=== PATIENT | male | born 1970 | race Caucasian/White ===

== ENCOUNTER 2021-09-22 12:34 | Outpatient (REF) | payer BC, SELFPAY ==
[2021-09-22 13:56] LABS: MANUAL DIFF FLAG NO
[2021-09-22 14:02] LABS: Basophils Absolute Auto 0.1 X10*3/uL (0.0-0.2); Basophils Percent Auto 0.8 % (0-2); Eosinophils Absolute Auto 0.2 X10*3/uL (0.0-0.4); Eosinophils Percent Auto 2.4 % (0-4); Hematocrit 44.9 % (42.0-52.0); Hemoglobin 15.8 g/dl (14.0-18.0); Imm Gran Abs Auto 0.01 X10*3/uL (0.00-0.03); Imm Gran Pct Auto 0.2 % (0.0-0.4); Lymphocytes Absolute Auto 2.4 X10*3/uL (1.2-4.9); Lymphocytes Percent Auto 38.7 % (20-40); Mean Corpuscular HGB Conc 35.2 g/dl (31.0-36.0); Mean Corpuscular Volume 91.1 fL (80.0-98.0); Mean Platelet Volume 10.4 fL (9.4-12.4); Monocytes Absolute Auto 0.5 X10*3/uL (0.1-1.2); Monocytes Percent Auto 8.4 % (2-11); Neutrophils Absolute Auto 3.1 x10*3/uL (2.0-8.3); Neutrophils Percent Auto 49.5 % (45-73); Platelet Count 223 X10*3/uL (160-400); Red Blood Count 4.93 X10*6/uL (4.60-5.80); Red Cell Distribution Width 12.9 % (11.0-16.0); White Blood Count 6.3 X10*3/uL (4.8-10.8)
[2021-09-22 14:33] LABS: Alanine Aminotransferase 45 U/L (0-40); Albumin Level 4.2 g/dL (3.5-5.0); Alkaline Phosphatase 74 U/L (39-117); Anion Gap 12 (12-20); Aspartate Amino Transferase 25 U/L (5-37); Bilirubin Total 0.7 mg/dL (0.0-1.0); Blood Urea Nitrogen 15 mg/dL (9-16); Calcium 9.1 mg/dL (8.4-10.2); Carbon Dioxide 28 mmol/L (22-29); Chloride 103 mmol/L (96-108); Cholesterol 151 mg/dL; Estimated Glomerular Filt Rate > 60; Glucose Fasting 103 mg/dL (60-99); HDL Cholesterol 49 mg/dL; LDL Cholesterol Calculated 89 mg/dl; Potassium 3.5 mmol/L (3.3-5.1); Sodium 139 mmol/L (135-145); Total Protein 6.4 g/dL (6.5-8.0); Triglycerides 66 mg/dL
[2021-09-22 14:38] LABS: TSH reflex Free T4 1.24 uIU/mL (0.32-4.0); Vitamin D 25-OH Total 12.8 ng/mL (>30)
[2021-09-22 14:42] LABS: Appearance Urine HAZY; Color Urine YELLOW; Glucose Urine UA NEG (NEG); Leukocyte Esterase Urine NEG (NEG); Nitrite Urine NEG (NEG); Specific Gravity - Urine 1.025 (1.005-1.025); Urine Blood NEG (NEG); Urine Ketones NEG (NEG); Urine Protein TRACE MG/DL (NEG-TRACE)
== END 2021-09-22 12:35 | disposition home or self-care (01) ==
LOC: HO.HMGCLDS 12:34
PROVIDERS: Visit Provider Internal Medicine
DX: E55.9 Vitamin D deficiency, unspecified (principal); I10 Essential (primary) hypertension; E78.00 Pure hypercholesterolemia, unspecified
CPT/HCPCS: 36415; 80053; 80061; 81003; 82306; 84443; 85025

== ENCOUNTER 2022-12-09 12:51 | Outpatient (REF) | payer BC, SELFPAY ==
[2022-12-09 15:11] LABS: Alanine Aminotransferase 39 U/L (0-40); Albumin Level 4.4 g/dL (3.5-5.0); Alkaline Phosphatase 72 U/L (39-117); Anion Gap 18 (12-20); Aspartate Amino Transferase 24 U/L (5-37); Bilirubin Total 0.8 mg/dL (0.0-1.0); Blood Urea Nitrogen 16 mg/dL (9-16); Calcium 9.6 mg/dL (8.4-10.2); Carbon Dioxide 27 mmol/L (22-29); Chloride 103 mmol/L (96-108); Estimated Glomerular Filt Rate > 60; Glucose Random 88 mg/dL (60-115); Lipase 27 U/L (8-78); Potassium 4.7 mmol/L (3.3-5.1); Sodium 143 mmol/L (135-145); Total Protein 6.7 g/dL (6.5-8.0)
== END 2022-12-09 12:52 | disposition home or self-care (01) ==
LOC: HO.HMGCLDS 12:51
PROVIDERS: Visit Provider Nurse Practitioner Family
DX: R10.9 Unspecified abdominal pain (principal)
CPT/HCPCS: 36415; 80053; 83690

== ENCOUNTER 2025-04-23 15:35 | Emergency (ER) | payer BC, SELFPAY ==
[2025-04-23] VITALS (7 sets, daily range): BP systolic 181–231; BP diastolic 111–147; PULSE 81–91; RESP 14–18; TEMP 36.7–37.2; O2SAT 92–97; BMI 31.0
--- NOTE | ~2025-04-23 | CT_ITS ---
EXAMINATION: CT HEAD WITHOUT CONTRAST CLINICAL INFORMATION: Hypertension COMPARISON: None available. TECHNIQUE: Contiguous axial imaging was performed from the skull base to vertex without intravenous administration of contrast. This CT examination was performed using dose optimization techniques as appropriate, variously including the following: *Automated exposure control *Adjustment of mA and/or kV according to patient size (this includes techniques or standardized protocols for targeted exams where dose is matched to indication/reason for exam; i.e. extremities or head) *Use of iterative reconstruction technique DLP: 735 mGY*cm FINDINGS: There is no acute ischemic change. There is no intracranial hemorrhage. There is no mass-effect or midline shift. Basal cisterns and ventricles are within normal limits for age/cerebral volume. Orbits are symmetrical and unremarkable. Paranasal sinuses are clear aside from mucous retention cyst in the posterior left maxillary sinus. There are no bony abnormalities. CT/CT head/brain wo IV con IMPRESSION: No acute intracranial abnormality. Electronically signed by: Suraj Edward MD 04/23/2025 05:10 PM EDT
--- NOTE | ~2025-04-23 | XR_ITS ---
EXAMINATION: XR CHEST CLINICAL INFORMATION: htn COMPARISON: None available. TECHNIQUE: Frontal view of the chest was obtained. FINDINGS: Borderline cardiac enlargement. Mediastinal and hilar contours are normal. The lungs are clear bilaterally. No pneumothorax or effusion. No focal osseous or soft tissue abnormality. XR/XR chest 1V IMPRESSION: Borderline cardiac enlargement. No active pulmonary disease. Electronically signed by: Fredy Burrell MD 04/23/2025 04:58 PM EDT RP
--- NOTE | 2025-04-23 15:57 | ED.GENADULT ---
HPI - General Adult General Chief complaint: Recheck/Abnormal Lab/Rx Stated complaint: UC sent over for super high bp!! Time Seen by Provider: 04/23/25 16:24 Source: patient Mode of arrival: ambulatory Limitations: no limitations History of Present Illness ED Provider: DR. Villar HPI narrative: 54-year-old male history of hypertension used to be on atenolol/HCTZ patient stopped taking his hypertension medication because his blood pressure was still remain high, patient also. Follow-up with his primary doctor. Patient was seen at an urgent care today for at work found to have a high blood pressure and they advised him to come to the ED. No headache, no blurry vision, no double vision, no chest pain, no shortness of breath, no abdominal pain, no lower extremity swelling. Related Data Previous Rx's ?Medication ?Instructions ?Recorded lorazepam 1 mg tablet 1 mg PO BID PRN anxiety 30 days 07/29/22 #60 tabs atenolol 50 mg tablet 50 mg PO DAILY 90 days #90 caps 12/30/22 losartan 100 1 tab PO DAILY 90 days #90 caps 12/30/22 mg-hydrochlorothiazide 25 mg tablet cholecalciferol (vitamin D3) 50 50 mcg PO DAILY 90 days #90 caps 03/01/23 mcg (2,000 unit) capsule amlodipine 5 mg tablet 5 mg PO BID #40 tabs 04/23/25 Allergies Allergy/AdvReac Type Severity Reaction Status Date / Time penicillin V Allergy Mild headaches Verified 04/23/25 16:00 Penicillins Allergy Unknown HEADACHES Verified 04/23/25 16:00 Review of Systems Review of Systems: All other systems are reviewed and are negative Constitutional: Reports as per HPI and Reports no additional constitutional complaints Eyes: Reports as per HPI and Reports no additional eye complaints Reports system reviewed and no additional complaints, except as documented Cardiovascular: Reports as per HPI and Reports no additional cardiovascular complaints Respiratory: Reports as per HPI and Reports no additional respiratory complaints Gastrointestinal: Reports as per HPI and Reports no additional gastrointestinal complaints Genitourinary: Reports no additional female genitourinary complaints Musculoskeletal: Reports no additional musculoskeletal complaints Skin/Breast: Reports system reviewed and no additional complaints, except as docu Psychiatric: Reports no additional psychiatric complaints Endocrine: Reports no additional endocrine complaints Hematologic/Lymphatic: Reports no additional hematologic/lymphatic complaints Allergic/Immunologic: Reports no additional allergic/immunologic complaints Reports system reviewed and no additional complaints, except as documented and Reports Abnormal speech present [facility] Past Medical History Medical History Vitamin D deficiency Dyslipidemia Overweight (BMI 25.0-29.9) Diabetes mellitus Orozco's palsy Obstructive sleep apnea Anxiety Benign essential hypertension Surgical History No pertinent past surgical history Family History Family History Mother No problems noted. Father Kidney problem Social History Social History Housing: House Alcohol intake: current Alcohol intake frequency: a few times a week Alcohol type: beer Patient Tobacco Use Status: Current someday Tobacco user Smoked in Last 30 Days: No Second Hand Smoke Exposure: Yes Use of substances other than those prescribed or required for medical reasons: No Advance Directives: No Advance Directives Information Provided: Yes service: No Current occupational status: employed Physical Exam ED Vital Signs: Vital Signs - 24 hr 04/23/25 15:57 04/23/25 16:44 04/23/25 17:07 Temperature 99.0 F Pulse Rate 91 Respiratory Rate 18 Blood Pressure 218/145 H 231/147 H 216/135 H Pulse Oximetry 97 Oxygen Delivery Method Room Air 04/23/25 18:13 04/23/25 18:21 04/23/25 20:06 Temperature Pulse Rate 81 81 Respiratory Rate 14 Blood Pressure 198/124 H 198/124 H 181/111 H Pulse Oximetry 92 Oxygen Delivery Method Room Air BMI result Body Mass Index 31.0 Vital signs have been reviewed and appear to be correct. Blood pressure elevated. Heart rate normal. Respiratory rate normal. Temperature normal. Oxygen saturation normal. Appearance: Alert. Oriented X3. No acute distress. Head: Normal external exam. Normocephalic. Atraumatic. No Lee signs noted. No raccoon eyes noted Eyes: PERRLA. EOMI. Conjunctiva and sclera normal. Eyelids normal. ENT: TM's Normal. Pharynx normal. Uvula midline. Moist mucous membranes. No trismus noted. No drooling noted. No muffled voice noted. Neck: Normal inspection. Neck supple. FROM. No adenopathy. Thyroid Normal. No meningeal signs. No neck mass noted. CVS: Normal heart rate and rhythm. Heart sound normal. No murmurs noted. Pulses normal throughout. Respiratory: No respiratory distress. Painless inspiration. Breath sounds normal. No wheezes/rales/rhonchi noted. Chest nontender. No accessory muscle usage noted or decreased air movement noted. Abdomen: Soft and nontender. Bowel sounds normal in all 4 quadrants. No distention noted. No organomegaly noted. No visible injury noted. Back: No CVA tenderness. Full range of motion noted. Skin: Skin warm and dry. Normal skin color. Normal skin turgor. No rashes/lesions/lacerations noted. Extremities: No lower extremity edema. Extremities exhibit normal range of motion. Extremities nontender. Neuro: Oriented X 3. Cranial nerve exam: II-XII are grossly intact No motor deficit. No sensory deficit. Reflexes normal. Course Course Course Narrative: This is an RME: Additional HPI, ROS, PE not included below will be deferred to primary provider. RME assessment and note performed by: Stefanie Barnes PA-C This is a [id number]-male, with a hx of HTN, DM, HLD, anxiety, who presents to the ER with a complaint of elevated blood pressure. He was at an urgent care to have his right ankle pain after stepping wrong off a ladder. Reports that he was previously on a HTN med years ago but stopped taking this because his BP remained elevated if he took it or not. BP elevated at 218/145. No CP or SOB. Plan: Labs, EKG, advised charge to bring pt back shazia Reevaluation(s) Reevaluation #1: Blood pressure now is 181/111, still no headache, no blurred my no double vision, no CP, no abdominal pain, patient was instructed to take the medicine as prescribed and monitor his blood pressure at home take multiple reading in different times of the day and review it with his PCP. He was using atenolol and HCTZ but was not working for him, will start amlodipine 5 mg b.i.d. with follow-up with PCP. Time: 20:15 Medications Administered Discontinued Medications Generic Name Dose Route Start Last Admin Trade Name Freq PRN Reason Stop Dose Admin Amlodipine Besylate 10 mg 04/23/25 16:39 04/23/25 16:44 Amlodipine Besylate 10 Mg Tablet PO 04/23/25 16:40 10 mg ONCE ONE Administration Protocol Labetalol HCl 10 mg 04/23/25 18:04 04/23/25 18:21 Labetalol Hcl 100 Mg/20 Ml Vial IVPUSH 04/23/25 18:05 10 mg ONCE ONE Administration Medical Decision Making Differential Diagnosis Differential Diagnoses: The differential diagnosis associated with the presentation includes (Hypertensive urgency, hypertensive emergency, ACS, CHF, neurological deficit.) Admission/Observation Consideration of admission/observation: Escalation of care including admission/observation considered Lab Data MDM Lab Attestation statement: I reviewed the patient's lab results. 04/23/25 16:34 04/23/25 16:34 Labs: Lab Results 04/23/25 Range/Units 16:34 WBC 7.1 (4.8-10.8) X10*3/uL RBC 4.97 (4.60-5.80) X10*6/uL Hgb 15.9 (14.0-18.0) g/dl Hct 44.6 (42.0-52.0) % MCV 89.7 (80.0-98.0) fL MCH 32.0 (27.0-33.0) pg MCHC 35.7 (31.0-36.0) g/dl RDW 13.2 (11.0-16.0) % Plt Count 180 (160-400) X10*3/uL MPV 9.9 (9.4-12.4) fL Immature Gran % (Auto) 0.3 (0.0-0.4) % Neut % (Auto) 60.5 (45-73) % Lymph % (Auto) 25.6 (20-40) % [place] % (Auto) 10.4 (2-11) % Eos % (Auto) 2.5 (0-4) % Baso % (Auto) 0.7 (0-2) % Lymph # (Auto) 1.8 (1.2-4.9) X10*3/uL [place] # (Auto) 0.7 (0.1-1.2) X10*3/uL Eos # (Auto) 0.2 (0.0-0.4) X10*3/uL Baso # (Auto) 0.1 (0.0-0.2) X10*3/uL Abs Immat Gran (auto) 0.02 (0.00-0.03) X10*3/uL Absolute Neuts (auto) 4.3 (2.0-8.3) x10*3/uL Absolute Nucleated RBC 0.000 (0.0-0.012) X10*3/uL Nucleated RBC % (auto) 0.0 (0.0-0.2) /100WBC Sodium 139 (135-145) mmol/L Potassium 3.6 (3.3-5.1) mmol/L Chloride 103 (96-108) mmol/L Carbon Dioxide 29 (22-29) mmol/L Anion Gap 11 L (12-20) BUN 18 H (9-16) mg/dL Creatinine 1.13 (0.5-1.4) mg/dL Estim Creat Clear Calc 92.4 Estimated GFR > 60 Random Glucose 124 H (60-115) mg/dL Calcium 8.9 D (8.4-10.2) mg/dL Magnesium 1.9 (1.6-2.6) mg/dL Total Bilirubin 0.4 (0.0-1.0) mg/dL Direct Bilirubin 0.1 (0.0-0.5) mg/dL AST 25 (5-37) U/L ALT 37 (0-40) U/L Alkaline Phosphatase 84 (39-117) U/L Troponin I High Sens 13.6 (<3.5-35.0) ng/L B-Natriuretic Peptide 61 (<100) pg/mL Total Protein 6.7 (6.5-8.0) g/dL Albumin 4.3 (3.5-5.0) g/dL Independent Interpretation I performed an independent interpretation of an: EKG (Normal sinus rhythm at 84 beats per minutes, normal intervals, J-point elevation in V1, V2, V3.), Plain X-Ray (Chest:Borderline cardiac enlargement. No active pulmonary disease. ) and CT Scan (Head: No acute intracranial abnormality.) Radiology Impression Discussion of test interpretation with radiology: I have reviewed the radiologist's reading. Discharge Plan Discharge Clinical Impression: Essential hypertension Patient Disposition: Home, Self-Care Instructions: Hypertension (ED) Additional Instructions: We discussed take your blood pressure reading 3 times a day and shows a record of your blood pressure reading to your doctor to determine if the new medication to be increased in dose or adding another medication to it. Prescriptions: New amlodipine 5 mg tablet 5 mg PO BID Qty: 40 0RF No Action lorazepam 1 mg tablet 1 mg PO BID PRN (Reason: anxiety) 30 Days Qty: 60 0RF Rx Instructions: NEEDS TO SCHEDULE FOLLOW UP APPT SH[facility]IA losartan-hydrochlorothiazide 100-25 mg tablet 1 tab PO DAILY 90 Days Qty: 90 0RF atenolol 50 mg tablet 50 mg PO DAILY 90 Days Qty: 90 0RF cholecalciferol (vitamin D3) 50 mcg (2,000 unit) capsule 50 mcg PO DAILY 90 Days Qty: 90 3RF Referrals: Huang Walton MD [Primary Care Provider, Internal Medicine] Print Language: [place]
--- NOTE | 2025-04-23 16:02 | ECG_ITS ---
Test Reason : ELEVATED BP Blood Pressure : */* mmHG Vent. Rate : 84 BPM Atrial Rate : 84 BPM P-R Int : 154 ms QRS Dur : 86 ms QT Int : 356 ms P-R-T Axes : 4 80 -60 degrees QTcB Int : 420 ms Normal sinus rhythm T wave abnormality, consider inferior ischemia Abnormal ECG When compared with ECG of 09-May-2009 11:12, Vent. rate has increased by 33 bpm Questionable change in QRS axis Non-specific change in ST segment in Inferior leads T wave inversion now evident in Inferior leads Referred By: Stefanie Barnes Electronically Signed By: NYDIA HEMPHILL
[2025-04-23 16:40] LABS: MANUAL DIFF FLAG NO
[2025-04-23] MEDS: amLODIPine Besylate 10 MG TABLET PO (16:44)
--- NOTE | 2025-04-23 16:45 | PC.NURSE ---
patient a&ox3, iv inserted, labs drawn, monitoring and evaluation advisor applied- nrs on monitor, pt hypertensive- denies headache or pain, pt medicated per order, call hope within reach, plan of care ongoing.
[2025-04-23 16:46] LABS: Basophils Absolute Auto 0.1 X10*3/uL (0.0-0.2); Basophils Percent Auto 0.7 % (0-2); Eosinophils Absolute Auto 0.2 X10*3/uL (0.0-0.4); Eosinophils Percent Auto 2.5 % (0-4); Hematocrit 44.6 % (42.0-52.0); Hemoglobin 15.9 g/dl (14.0-18.0); Imm Gran Abs Auto 0.02 X10*3/uL (0.00-0.03); Imm Gran Pct Auto 0.3 % (0.0-0.4); Lymphocytes Absolute Auto 1.8 X10*3/uL (1.2-4.9); Lymphocytes Percent Auto 25.6 % (20-40); Mean Corpuscular HGB Conc 35.7 g/dl (31.0-36.0); Mean Corpuscular Volume 89.7 fL (80.0-98.0); Mean Platelet Volume 9.9 fL (9.4-12.4); Monocytes Absolute Auto 0.7 X10*3/uL (0.1-1.2); Monocytes Percent Auto 10.4 % (2-11); Neutrophils Absolute Auto 4.3 x10*3/uL (2.0-8.3); Neutrophils Percent Auto 60.5 % (45-73); Platelet Count 180 X10*3/uL (160-400); Red Blood Count 4.97 X10*6/uL (4.60-5.80); Red Cell Distribution Width 13.2 % (11.0-16.0); White Blood Count 7.1 X10*3/uL (4.8-10.8)
[2025-04-23 16:57] LABS: Alanine Aminotransferase 37 U/L (0-40); Albumin Level 4.3 g/dL (3.5-5.0); Alkaline Phosphatase 84 U/L (39-117); Anion Gap 11 (12-20); Aspartate Amino Transferase 25 U/L (5-37); Bilirubin Direct 0.1 mg/dL (0.0-0.5); Bilirubin Total 0.4 mg/dL (0.0-1.0); Blood Urea Nitrogen 18 mg/dL (9-16); Calcium 8.9 mg/dL (8.4-10.2); Carbon Dioxide 29 mmol/L (22-29); Chloride 103 mmol/L (96-108); Creatinine Clr Calc Pharmacy 92.4; Estimated Glomerular Filt Rate > 60; Glucose Random 124 mg/dL (60-115); Magnesium 1.9 mg/dL (1.6-2.6); Potassium 3.6 mmol/L (3.3-5.1); Sodium 139 mmol/L (135-145); Total Protein 6.7 g/dL (6.5-8.0)
[2025-04-23 17:03] LABS: Troponin-I High Sensitivity 13.6 ng/L (<3.5-35.0)
[2025-04-23 17:31] LABS: B Type Natriuretic Peptide 61 pg/mL (<100)
[2025-04-23] MEDS: Labetalol HCL 100 MG/20 ML VIAL 10 MG IVPUSH (18:21)
--- NOTE | 2025-04-23 18:38 | PC.NURSE ---
pt continues to be hypertensive, pt medicated with IVP medication for htn, pt continues to deny headache or any discomfort, family at bedside, engine monitor intact, call hope within reach, plan of care ongoing
--- NOTE | 2025-04-23 20:06 | PC.NURSE ---
assumed care of pt. Pt b/p 181/111, no complaints of pain (chest specifically), no headache. Provide advised of current b/p.
== END 2025-04-23 20:48 | disposition home or self-care (01) ==
PROVIDERS: Physician Assistant Medical; Emergency Provider Emergency Medicine; PCP Internal Medicine
DX: R79.89 Other specified abnormal findings of blood chemistry (principal); I10 Essential (primary) hypertension; E11.9 Type 2 diabetes mellitus without complications; F41.9 Anxiety disorder, unspecified; R94.31 Abnormal electrocardiogram [ECG] [EKG]; F17.210 Nicotine dependence, cigarettes, uncomplicated; R06.02 Shortness of breath; Z79.899 Other long term (current) drug therapy
CPT/HCPCS: 36415; 70450; 71045; 80048; 80076; 83735; 83880; 84484; 85025; 93005; 96374; 99284; 99285; J1920

== ENCOUNTER → 2025-04-23 16:02 | Outpatient (BNV) | payer BC, SELFPAY | PROVIDERS: Emergency Provider Emergency Medicine; PCP Internal Medicine; Visit Provider Internal Medicine | DX: R94.31 Abnormal electrocardiogram [ECG] [EKG] (principal); R03.0 Elevated blood-pressure reading, without diagnosis of hypertension | CPT/HCPCS: 93010 ==

== ENCOUNTER → 2025-04-23 16:37 | Outpatient (BNV) | payer BC, SELFPAY | PROVIDERS: Emergency Provider Emergency Medicine; PCP Internal Medicine; Visit Provider Radiology Diagnostic Radiology | DX: I10 Essential (primary) hypertension (principal) | CPT/HCPCS: 70450; 71045 ==

== ENCOUNTER 2025-05-01 08:00 | Outpatient (AMB) | payer BC, SELFPAY ==
--- NOTE | 2025-05-01 08:05 | A.OFFPC_ITS ---
Vital Signs 05/01/25 08:08 Height 5 ft 7.72 in Weight 217 lb 4 oz BMI 33.3 BP 122/80 Blood Pressure Location Lt brachial Position Sitting Pulse 81 Pulse Source Pulse Oximeter Temp 97.3 F Temp Source Temporal Artery Scan Pulse Oximetry (%) 98 Oxygen Delivery Method Room Air Intake Visit Reasons: Establish care Intake Note: Patient is here today for re-establish of care. Community Living Coach Required: No International Account Executive: Not Required per policy Accompanied by: Self / Same As Patient Allergies penicillin V Allergy (Mild, Verified 05/01/25 08:08) headaches Penicillins Allergy (Unknown, Verified 05/01/25 08:08) HEADACHES Medication List - Last Reviewed 05/01/25 by CECILE Alston amlodipine 5 mg PO BID cholecalciferol (vitamin D3) 50 mcg PO DAILY 90 days Tobacco use date assessed: 05/01/25 Dental Screening Dental Screen Date: 05/01/25 Did you have a dental visit in the last 12 months?: No Did you have a dental problem in the last 6 months where you did not have access to dental care?: No Was dental information given to patient?: No HPI Establish care HPI Details 54-year-old male coming to the office fo r the 1st time. In review of the notes, patient was [place] [facility] [place] [facility] [place] for elevated blood pressure patient was restarted on amlodipine 5 mg and discharged home. Presenting with elevated blood pressure. The patient experienced a hypertensive crisis with a blood pressure of 210/130 mmHg after stepping off a ladder, leadi ng to an urgent care visit and subsequent ER evaluation. Blood pressure readings have been consistently high, with systolic values ranging from 150 to 180 mmHg and diastolic values from 109 to 119 mmHg. Blood pressure is highest in the morning before medication intake and decreases after taking amlodipine. Currently on amlodipine 5 mg twice daily, with a history of atenolol hydrochlorothiazide use, which was discontinued due to scheduling conflicts for refills. The patient has been monitoring blood pressure at home and reports a slight downward trend since starting amlodipine. [facility] Medical History Vitamin D deficiency Dyslipidemia Overweight (BMI 25.0-29.9) Diabetes mellitus Orozco's palsy Obstructive sleep apnea Anxiety Benign essential hypertension Surgical History No pertinent past surgical history Family History Mother No problems noted. 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 1. Little interest or pleasure in doing things: more than half the days 2. Feeling down, depressed, or hopeless: not at all 3. Trouble falling or staying asleep, or sleeping too much: several days 4. Feeling tired or having little energy: nearly every day 5. Poor appetite or overeating: not at all 6. Feeling bad about yourself - or that you are a failure or have let yourself or your family down: not at all 7. Trouble concentrating on things, such as reading the newspaper or watching television: not at all 8. Moving or speaking so slowly that other people could have noticed. Or the opposite - being so fidgety or restless that you have been moving around a lot more than usual: not at all 9. Thoughts that you would be better off or of hurting yourself in some way: not at all Total score: 6 Depression Screening Interpretation: Positive Depression Screening Follow-up: Existing condition and Declines treatment Depression Screening Done: Yes Source: Developed by Drs. Migel Wang, Elinor Martin, Kwabena Oreilly and colleagues, with an educational soraya from [employer]. Thrive Questionnaire Date Thrive assessed: 05/01/25 I am a: Patient What is your living situation today?: I have a steady place to live Within the past 12 months, did the food you bought not last and you didn't have the money to get more?: Never true Within the past 12 months, did you worry whether your food would run out before you got money to buy more?: Never true Do you have trouble paying for medicines?: No Do you have trouble getting transportation to medical appointments?: No Do you have trouble paying your heating and electricity bill?: No Do you have trouble taking care of your child, family member or friend?: No Do you have trouble with day-to-day activities such as bathing, preparing meals, shopping, managing finances, etc.?: No Are you currently unemployed and looking for a job?: No Are you interested in more education?: Yes Please select the resources that you would like help with: None Currently or been in a relationship where the following occur: No concerns reported THRIVE Score: 0 AUDIT C Alcohol Use Questionnaire (AUDIT-C) 1. How often do you have a drink containing alcohol?: 2-4 times a month 2. How many drinks containing alcohol do you have on a typical day when you are drinking?: 7 to 9 3. How often do you have six or more drinks on one occasion?: Monthly Total Score: 7 WALT-7 AMB Questionnaire WALT-7 Date WALT - 7 assessed: 05/01/25 Feeling nervous, anxious, or on edge: 1 = Several days Not being able to stop or control worryin = More than half the days Worrying too much about different things: 2 = More than half the days Trouble relaxin = Several days Being so restless that it is hard to sit still: 0 = Not at all Becoming easily annoyed or irritable: 2 = More than half the days Feeling afraid as if something awful might happen: 2 = More than half the days Total WALT-7 score (0-4 normal; 5-9 mild; 10-14 moderate; 15-21 severe): 10 Source: Developed by Drs. Migel Wang, Elinor Martin, Kwabena Oreilly and colleagues, with an educational soraya from [employer]. WALT-7 Assessment Billing WALT-7 Assessment Tool: WALT-7 Assessment 70819 Review of Systems Const Denies body aches, Denies chills, Denies fever(s), Denies headache(s) and Denies poor appetite Eyes Reports no additional complaints ENT Denies dizziness and Denies headache(s) Card Denies chest pain, Denies syncope, Denies edema, Denies lightheadedness and Denies dyspnea Resp Denies cough and Denies dyspnea GI Denies abdominal pain, Denies nausea and Denies vomiting Reports no additional complaints Musc Reports no additional complaints and Denies abnormal gait Skin/Breast Reports system reviewed and no additional complaints, except as documented Neuro Denies abnormal gait, Denies dizziness, Denies syncope and Denies headache(s) Psych Reports no additional complaints Physical exam (Primary Care) Vital Signs: Last Vital Signs Temp 97.3 F 05/01/25 08:08 Pulse 81 05/01/25 08:08 BP 122/80 05/01/25 08:08 Pulse Ox 98 05/01/25 08:08 Oxygen Delivery Method Room Air 05/01/25 08:08 BMI result Body Mass Index 33.3 Tobacco/Smoking Status: Tobacco use Status Tobacco use date assessed 05/01/25 05/01/25 08:07 Patient Tobacco Use Status Former Tobacco user 05/01/25 08:15 e-Cigarette/Vaping Use Never Used 05/01/25 08:15 PHQ-9: PHQ-9 Score PHQ-9: Total score 6 05/01/25 08:15 Depression Screening Interpretation: Positive Depression Screening Follow-up: Existing condition and Declines treatment Thrive Assessment: Date of Thrive Assessment Date Thrive assessed 05/01/25 05/01/25 08:07 Currently or been in a relationship where the following occur: No concerns reported Const General: cooperative, healthy appearing, comfortable and no acute distress Orientation/consciousness: patient oriented x3 HENMT Head: Yes normocephalic Ears: hearing grossly normal bilaterally General nose exam: Normal external nose present Eyes General: appearance normal, both eyes and all related structures Conjunctivae: conjunctivae normal Neck Neck: Yes full ROM and Yes no lymphadenopathy Resp Effort & Inspection: normal respiratory effort Auscultation: clear to auscultation bilaterally, no crackles, no rales, no rhon chi and no wheezes Cardio Rate: regular rate Rhythm: regular rhythm Skin General skin exam: no rashes or lesions noted Neuro General: patient oriented x3 Gait exam (Neuro): Normal gait present Extrem Other: No pain to palpation of bilateral knees. No knee swelling, redness, warmth bilaterally. General: Yes normal to inspection, Yes full ROM and No edema Psych Affect: normal affect Attitude: cooperative Insight: Good insight present (Psych) Judgement: Good judgement present (Psych) Coding Level of Care Code New Pt Level 4 (42498) Diagnoses Benign essential hypertension I10 Anxiety F41.9 Overweight (BMI 25.0-29.9) E66.3 Vitamin D deficiency E55.9 Depression F32.A Nocturnal polyuria R35.81 Blurred vision, bilateral H53.8 Additional Codes WALT-7 Assessment Billing - WALT-7 Assessment Tool: WALT-7 Assessment 74086 ([id number]) Assessment & Plan Assessment & Plan (1) Benign essential hypertension: Code(s): I10 - Essential (primary) hypertension Category: Medical Plan: Continue on current blood pressure medication. Avoid salt intake and encourage healthy diet and regular exercise. Patient has been on the amlodipine for 1 week and has seen an improvement in his blood pressure however does remain elevated. I did discuss with the patient to takes about 2 weeks for the blood pressure medication to start to kick in. Plan to see the nurse's next week for blood pressure check and consider increasing dosage at that time and see back in the office for 6 weeks. (2) Anxiety: Code(s): F41.9 - Anxiety disorder, unspecified Category: Medical Plan: Patient has a previous history of anxiety which feels well managed without medications at this time. Declining counseling. Currently using Ashwaghanda [id number] supplement with good benefit (3) Overweight (BMI 25.0-29.9): Code(s): E66.3 - Overweight Category: Medical Plan: Healthy diet and regular exercise is encouraged. (4) Vitamin D deficiency: Code(s): E55.9 - Vitamin D deficiency, unspecified Category: Medical Plan: Ordered for updated blood work (5) Depression: Code(s): F32.A - Depression, unspecified Category: Medical Plan: Denying any feelings of depression at this time declining counseling or medical management. (6) Nocturnal polyuria: Code(s): R35.81 - Nocturnal polyuria Category: Medical Plan: Patient states he often gets up at night to go to the bathroom. Plan to obtain urinalysis and PSA for further evaluation (7) Blurred vision, bilateral: Code(s): H53.8 - Other visual disturbances Category: Medical Plan: Chronic blurred vision plan to obtain optometry consult. Referral was placed today Plan This note was constructed using voice recognition software. While every effort has been made to ensure accuracy and data entry representative, still areas may have been included sometimes these areas may affect the content or meeting of the given symptoms. Total time spent caring for the patient today was 30 minutes. This i ncludes time spent before the visit reviewing the chart, time spent during the visit, and time spent after the visit and documentation. Patient was informed and verbally consented to the use of an ambient scribe for clinic note documentation during this visit. Orders: Orders Lipid Panel Today Z13.1 - Encounter for screening for diabetes mellitus, Z13.220 - Encounter for screening for lipoid disorders Hemoglobin A1c Today Z13.1 - Encounter for screening for diabetes mellitus Vitamin B12 and Folate Today I10 - Essential (primary) hypertension, Z13.21 - Encounter for screening for nutritional disorder TSH reflex Free T4 Today I10 - Essential (primary) hypertension, Z00.00 - Encounter for general adult medical examination without abnormal findings Free T4 (Free Thyroxine) Today I10 - Essential (primary) hypertension, Z00.00 - Encounter for general adult medical examination without abnormal findings UA CC w/rflx Micro + Cult Today R35.81 - Nocturnal polyuria, R35.89 - Other polyuria Vitamin D 25-OH Total Today E55.9 - Vitamin D deficiency, unspecified, Z00.00 - Encounter for general adult medical examination without abnormal findings PSA, Ultra Sensitive Today R35.81 - Nocturnal polyuria, Z00.00 - Encounter for general adult medical examination without abnormal findings Referrals Optometry Referral H53.8 - Other visual disturbances Medications: Refilled amlodipine 5 mg PO BID 60 tabs 0RF
[2025-05-01 08:08] VITALS: BP 122/80; PULSE 81; TEMP 36.3; O2SAT 98; BMI 33.3
== END 2025-05-01 08:52 | disposition home or self-care (01) ==
LOC: HO.HMCH 08:00
PROVIDERS: PCP Internal Medicine
DX: I10 Essential (primary) hypertension (principal); F41.9 Anxiety disorder, unspecified; E66.3 Overweight; E55.9 Vitamin D deficiency, unspecified; F32.A Depression, unspecified; R35.81 Nocturnal polyuria; H53.8 Other visual disturbances

== ENCOUNTER → 2025-05-01 08:00 | Outpatient (BNVA) | payer BC, SELFPAY | PROVIDERS: PCP Internal Medicine | DX: I10 Essential (primary) hypertension (principal); F41.9 Anxiety disorder, unspecified; E66.3 Overweight; E55.9 Vitamin D deficiency, unspecified; F32.A Depression, unspecified; R35.81 Nocturnal polyuria; H53.8 Other visual disturbances | CPT/HCPCS: 96127 ==

== ENCOUNTER 2025-05-09 12:36 | Outpatient (AMB) | payer BC, SELFPAY ==
--- NOTE | 2025-05-09 12:42 | MHC.PC.OV ---
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 Presenting for management of hypertension. The patient reports morning blood pressure readings of 180/117 mmHg, with daytime readings in the high 140s/90s. He is on the maximum dose of amlodipine, 10 mg daily, taken as 5 mg twice a day, but blood pressure remains elevated. A combination pill with amlodipine and olmesartan has been prescribed to better manage his hypertension. The patient is advised to monitor for dizziness or lightheadedness during the transition to the new medication regimen. Previous blood pressure readings were as high as 200 mmHg, showing improvement with treatment. [facility] Medical History Vitamin D deficiency Dyslipidemia Overweight (BMI 25.0-29.9) Diabetes mellitus Orozco's palsy Obstructive sleep apnea Anxiety Benign essential hypertension Surgical History No pertinent past surgical history Family History Mother No problems noted. Father Kidney problem Paternal Grandmother Breast cancer Social History Housing: House Alcohol intake: current Alcohol intake frequency: a few times a month Alcohol type: beer Patient Tobacco Use Status: Former Tobacco user e-Cigarette/Vaping Use: Never Used Second Hand Smoke Exposure: Yes service: No Current occupational status: employed Current occupation: [employer] Cognitive needs: No Hearing needs: No Vision needs: Yes (Reading glasses) Questionnaire Thrive Questionnaire Date Thrive assessed: 05/09/25 I am a: Patient What is your living situation today?: I have a steady place to live Within the past 12 months, did the food you bought not last and you didn't have the money to get more?: Never true Within the past 12 months, did you worry whether your food would run out before you got money to buy more?: Never true Do you have trouble paying for medicines?: No Do you have trouble getting transportation to medical appointments?: No Do you have trouble paying your heating and electricity bill?: No Do you have trouble taking care of your child, family member or friend?: No Do you have trouble with day-to-day activities such as bathing, preparing meals, shopping, managing finances, etc.?: No Are you currently unemployed and looking for a job?: No Are you interested in more education?: Yes Please select the resources that you would like help with: None Currently or been in a relationship where the following occur: No concerns reported THRIVE Score: 0 WALT-7 AMB Questionnaire WALT-7 Date WALT - 7 assessed: 05/09/25 Source: Developed by Drs. Migel Wang, Elinor Martin, Kwabena Oreilly and colleagues, with an educational soraya from [employer] Review of Systems Const Denies body aches, Denies chills, Denies fever(s), Denies headache(s) and Denies poor appetite Eyes Reports no additional complaints ENT Denies dysphagia, Denies dizziness, Denies headache(s) and Denies odynophagia Card Denies chest pain, Denies syncope, Denies edema, Denies irregular heart rhythm, Denies lightheadedness and Denies dyspnea Resp Denies cough and Denies dyspnea GI Denies abdominal pain, Denies constipation, Denies dysphagia, Denies diarrhea, Denies nausea, Denies odynophagia and Denies vomiting Reports no additional complaints Musc Reports no additional complaints and Denies abnormal gait Skin/Breast Reports system reviewed and no additional complaints, except as documented Neuro Denies abnormal gait, Denies dizziness, Denies syncope and Denies headache(s) Psych Reports no additional complaints Physical exam (Primary Care) Vital Signs: Last Vital Signs Pulse 89 05/09/25 12:45 BP 150/90 H 05/09/25 12:45 Pulse Ox 98 05/09/25 12:45 Oxygen Delivery Method Room Air 05/09/25 12:45 BMI result Body Mass Index 33.1 Tobacco/Smoking Status: Tobacco use Status Tobacco use date assessed 05/09/25 05/09/25 12:50 Patient Tobacco Use Status Former Tobacco user 05/09/25 12:50 e-Cigarette/Vaping Use Never Used 05/09/25 12:50 Thrive Assessment: Date of Thrive Assessment Date Thrive assessed 05/09/25 05/09/25 12:50 Currently or been in a relationship where the following occur: No concerns reported Const General: cooperative, healthy appearing, comfortable and no acute distress Orientation/consciousness: patient oriented x3 HENMT Head: Yes normocephalic Ears: hearing grossly normal bilaterally General nose exam: Normal external nose present Eyes General: appearance normal, both eyes and all related structures Conjunctivae: conjunctivae normal Neck Neck: Yes full ROM and Yes no lymphadenopathy Resp Effort & Inspection: normal respiratory effort Auscultation: clear to auscultation bilaterally, no crackles, no rales, no rhonchi and no wheezes Cardio Rate: regular rate Rhythm: regular rhythm Skin General skin exam: no rashes or lesions noted Neuro General: patient oriented x3 Gait exam (Neuro): Normal gait present Extrem General: Yes normal to inspection, Yes full ROM and No edema Psych Affect: normal affect Attitude: cooperative Insight: Good insight present (Psych) Judgement: Good judgement present (Psych) Coding Level of Care Code Est Pt Level 3 (70651) Diagnoses Benign essential hypertension I10 Overweight (BMI 25.0-29.9) E66.3 Assessment & Plan Assessment & Plan (1) Benign essential hypertension: Code(s): I10 - Essential (primary) hypertension Category: Medical Plan: The patient will switch from amlodipine 5 mg twice daily to a combination pill of amlodipine 10 mg and olmesartan once daily to enhance blood pressure management. He should watch for side effects like dizziness or lightheadedness and report them if they occur. Home blood pressure monitoring and dietary modifications should continue. A follow-up appointment is set for six weeks to evaluate blood pressure and treatment effectiveness. (2) Overweight (BMI 25.0-29.9): Code(s): E66.3 - Overweight Category: Medical Plan: Healthy diet and regular exercise is encouraged. Plan This note was constructed using voice recognition software. While every effort has been made to ensure accuracy and remotely piloted vehicle controller, still areas may have been included sometimes these areas may affect the content or meeting of the given symptoms. Total time spent caring for the patient today was 20 minutes. This includes time spent before the visit reviewing the chart, time spent during the visit, and time spent after the visit and documentation. Patient was informed and verbally consented to the use of an ambient scribe for clinic note documentation during this visit. Medications: New amlodipine-olmesartan 10-20 mg 1 tab PO DAILY 30 tabs 0RF Discontinued amlodipine Discontinued Reason: Patient no longer taking 5 mg PO BID 60 tabs 0RF
[2025-05-09 12:45] VITALS: BP 150/90; PULSE 89; O2SAT 98; BMI 33.1
== END 2025-05-09 13:32 | disposition home or self-care (01) ==
LOC: HO.HMCH 12:37
PROVIDERS: PCP Internal Medicine
DX: I10 Essential (primary) hypertension (principal); E66.3 Overweight

== ENCOUNTER 2025-05-09 13:23 | Outpatient (REF) | payer BC, SELFPAY ==
[2025-05-09 14:28] LABS: Hemoglobin A1C 180.4775 umol/L; Total Hemoglobin (HGBA1C) 4285.0131 umol/L
[2025-05-09 14:52] LABS: Cholesterol 150 mg/dL (<200); HDL Cholesterol 52 mg/dL (>40); Triglycerides 63 mg/dL (<150)
[2025-05-09 15:11] LABS: Free T4 (Free Thyroxine) 0.79 ng/dL (0.71-1.85)
[2025-05-09 15:14] LABS: Folate 8.0 ng/mL (> or = 4.0); Vitamin B12 754 pg/mL (200-900)
[2025-05-09 15:42] LABS: Appearance Urine Clear; Glucose Urine UA Negative (Negative); PH 6.5 (5.0-9.0); Specific Gravity - Urine 1.020 (1.005-1.025); UMIC TRIGGER UACC YES
[2025-05-14 08:13] LABS: PSA, Ultra Sensitive 0.48 ng/mL
== END 2025-05-09 13:24 | disposition home or self-care (01) ==
LOC: HO.LAB 13:23
PROVIDERS: Visit Provider Physician Assistant
DX: Z00.00 Encounter for general adult medical examination without abnormal findings (principal); R35.81 Nocturnal polyuria; E55.9 Vitamin D deficiency, unspecified; I10 Essential (primary) hypertension; F41.9 Anxiety disorder, unspecified; F32.A Depression, unspecified; E66.9 Obesity, unspecified; Z68.33 Body mass index [BMI] 33.0-33.9, adult; Z13.21 Encounter for screening for nutritional disorder; Z13.220 Encounter for screening for lipoid disorders; Z13.1 Encounter for screening for diabetes mellitus; Z12.5 Encounter for screening for malignant neoplasm of prostate
CPT/HCPCS: 36415; 80061; 81001; 82306; 82607; 82746; 83036; 84153; 84439; 84443

== ENCOUNTER → 2025-06-03 03:24 | Outpatient (BNV) | payer BC, SELFPAY | PROVIDERS: Emergency Provider Emergency Medicine; PCP Internal Medicine; Visit Provider Radiology Diagnostic Radiology | DX: R07.9 Chest pain, unspecified (principal) | CPT/HCPCS: 71045 ==

== ENCOUNTER 2025-06-03 04:14 | Emergency (ER) | payer BC, SELFPAY ==
[2025-06-03] VITALS (7 sets, daily range): BP systolic 132–196; BP diastolic 69–121; PULSE 55–81; RESP 14–18; TEMP 36.3–36.8; O2SAT 84–99; BMI 30.7
--- NOTE | 2025-06-03 | ECG_ITS ---
Test Reason : cp Blood Pressure : */* mmHG Vent. Rate : 77 BPM Atrial Rate : 77 BPM P-R Int : 162 ms QRS Dur : 92 ms QT Int : 356 ms P-R-T Axes : 59 -16 93 degrees QTcB Int : 402 ms Normal sinus rhythm Minimal voltage criteria for LVH, may be normal variant ( R in aVL ) Nonspecific T wave abnormality Abnormal ECG When compared with ECG of 23-Apr-2025 16:14, Questionable change in QRS axis Non-specific change in ST segment in Inferior leads T wave inversion no longer evident in Inferior leads Referred By: Generic ED Physician Electronically Signed By: SANJIV JACOBS MD
--- NOTE | ~2025-06-03 | XR_ITS ---
CLINICAL HISTORY: cp 1 view chest x-ray. Comparison: CR/SR - XR CHEST 1 VIEW - 04/23/25 16:41 EDT Findings: The lungs appear clear. There is no consolidation, effusion, or pneumothorax. Cardiomediastinal silhouette is within normal limits for technique. IMPRESSION: No acute cardiopulmonary abnormality. This document has been electronically signed by: Bc Hansen MD on 06/03/2025 04:51:32
[2025-06-03 04:35] LABS: Hematocrit 43.3 % (42.0-52.0); Hemoglobin 15.7 g/dl (14.0-18.0); Imm Gran Abs Auto 0.01 X10*3/uL (0.00-0.03); Imm Gran Pct Auto 0.1 % (0.0-0.4); Lymphocytes Absolute Auto 2.2 X10*3/uL (1.2-4.9); MANUAL DIFF FLAG NO; Mean Corpuscular HGB Conc 36.3 g/dl (31.0-36.0); Mean Corpuscular Hemoglobin 32.0 pg (27.0-33.0); Mean Corpuscular Volume 88.2 fL (80.0-98.0); NRBC Abs Auto 0.000 X10*3/uL (0.0-0.012); NRBC Pct Auto 0.0 /100WBC (0.0-0.2); Platelet Count 197 X10*3/uL (160-400); Red Blood Count 4.91 X10*6/uL (4.60-5.80); White Blood Count 6.7 X10*3/uL (4.8-10.8)
[2025-06-03 04:40] LABS: INTERNATIONAL NORM RATIO 1.0 (0.9-1.1); Prothrombin Time 10.9 SEC (10.9-12.4)
[2025-06-03 04:52] LABS: Alanine Aminotransferase 44 U/L (0-40); Albumin Level 4.6 g/dL (3.5-5.0); Alkaline Phosphatase 92 U/L (39-117); Anion Gap 14 (12-20); Aspartate Amino Transferase 33 U/L (5-37); Blood Urea Nitrogen 15 mg/dL (9-16); Calcium 9.2 mg/dL (8.4-10.2); Carbon Dioxide 26 mmol/L (22-29); Chloride 105 mmol/L (96-108); Creatinine Clr Calc Pharmacy 117.4; Estimated Glomerular Filt Rate > 60; Lipase 28 U/L (8-78); Magnesium 2.1 mg/dL (1.6-2.6); Potassium 3.8 mmol/L (3.3-5.1); Sodium 141 mmol/L (135-145); Total Protein 7.3 g/dL (6.5-8.0)
[2025-06-03 04:54] LABS: Troponin-I High Sensitivity 6.2 ng/L (<3.5-35.0)
--- NOTE | 2025-06-03 05:01 | ED_ITS ---
HPI - Chest Pain General Chief Complaint: Chest Pain Stated Complaint: chest pain Time Seen by Provider: 06/03/25 04:31 History of Present Illness ED Provider: Sergio Bermudez MD HPI narrative: 54-year-old male with history of overweight, fairly recent diagnosis of essential hypertension currently on amlodipine and ARB combo drug with several intermittent episodes that he describes as ?my heart beating weird ?and central chest discomfort not related to exertion, eating, breathing. He has felt a few times this week felt it was ?a panic attack ?. Symptoms resolved but about 2 or 3 hours ago he started feeling similar symptom with chest discomfort. At no point including tonight has he had any radiation to the back neck extremities or any other associated symptoms I dyspnea diaphoresis nausea vomiting. He tells me when he exerts himself in fact or is working hard at work symptoms go away. No known family or personal history of early coronary artery disease or NH or sudden cardiac denies leg edema or history of DVT or PE. Related Data Previous Rx's ?Medication ?Instructions ?Recorded cholecalciferol (vitamin D3) 50 50 mcg PO DAILY 90 day s #90 caps 03/01/23 mcg (2,000 unit) capsule amlodipine 10 mg-olmesartan 20 mg 1 tab PO DAILY #30 t abs 05/09/25 tablet Allergies Allergy/AdvReac Type Severity Reaction Status Date / Time penicillin V Allergy Mild headaches Verified 06/03/25 04:23 Penicillins Allergy Unknown HEADACHES Verified 06/03/25 04:23 [facility] Past Medical History Medical History Vitamin D deficiency Dyslipidemia Overweight (BMI 25.0-29.9) Diabetes mellitus Orozco's palsy Obstructive sleep apnea Anxiety Benign essential hypertension Surgical History No pertinent past surgical history Family History Family History Mother No problems noted. 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 Head: Atraumatic Eyes: Anicteric, Normal conjunctiva. ENT: Moist mucosa, no pallor. ? Neck: Supple. Skin: ?No observable rash or bruising on exposed or examined skin Respiratory: Breathing comfortably, No distress.Clear to auscultation bilaterally, symmetric chest expansion, No wheeze, rales, ronchi. Cardiovascular: Regular rate and rhythm. No murmurs or rub. Well perfused periphery, warm extremities. No edema. ? Abdominal: No focal tenderness. Soft, no objective distension. No palpable masses or obvious organomegaly. ?No guarding, no rebound tenderness or other peritoneal findings. : No flank tenderness. Neuro: Alert. Gross movement of all extremities intact. ? Psych: Calm. Cooperative. MSK: No grossly visible deformity. Vital signs: See flowsheet Vital Signs: Vital Signs: Last Vital Signs Temp 97.3 F 06/03/25 07:17 Pulse 55 06/03/25 07:17 Resp 16 06/03/25 07:17 BP 132/69 06/03/25 07:17 Pulse Ox 99 06/03/25 07:17 O2 Del Method Room Air 06/03/25 07:17 O2 Flow Rate 2 06/03/25 06:24 BMI result Body Mass Index 30.7 Medications Administered Discontinued Medications Generic Name Dose Route Start Last Admin Trade Name Freq PRN Reason Stop Dose Admin Labetalol HCl 10 mg 06/03/25 04:32 06/03/25 04:50 Labetalol Hcl 100 Mg/20 Ml Vial IVPUSH 06/03/25 04:33 10 mg ONCE ONE Administration Medical Decision Making Medical Decision Making MDM Narrative: Medical Decision Makin-year-old male with atypical nonexertional chest discomfort intermittently and associated with irregular transient and brief palpitation. Symptomatology most suggestive of possible transient arrhythmia or PAC or PVC. Given the patient's age and significant hypertension certainly could be hypertensive emergency/ACS but doubt this. There was no characteristics nor neurovascular exam findings to suggest aortic dissection though this was considered. Chest wall nontender. Telemetry and cardiac exam without premature beats Significant hypertension in the setting of chest pain therefore labetalol IV started. Patient however looks comfortable doubt hypertensive emergency, until troponins returned reasonable to treat pressure aggressively. However even without treatment after his triage vitals is blood pressure was 170/105 and I was at the bedside shortly after that Preliminary Favored Differential Diagnosis: PAC or PVC, irregular arrhythmia/AFib, mi/ACS, pericarditis, among additional considered etiologies Testing Interpreted Independently: ECG: Sinus rhythm rate 77 QTC 402. No acute ischemic changes, LVH suspected. Radiology or Lab testing Results Reviewed: Not Applicable Consults: Not Applicable Independent Historians/External Chart Reviews: Not Applicable Social Determinants of Health Impacting MDM/Planning: Not Applicable Lab Data 06/03/25 04:30 06/03/25 04:30 Labs: Lab Results 06/03/25 06/03/25 Range/Units 04:30 06:26 WBC 6.7 (4.8-10.8) X10*3/uL RBC 4.91 (4.60-5.80) X10*6/uL Hgb 15.7 (14.0-18.0) g/dl Hct 43.3 (42.0-52.0) % MCV 88.2 (80.0-98.0) fL MCH 32.0 (27.0-33.0) pg MCHC 36.3 H (31.0-36.0) g/dl RDW 12.8 (11.0-16.0) % Plt Count 197 (160-400) X10*3/uL MPV 9.4 (9.4-12.4) fL Immature Gran % (Auto) 0.1 (0.0-0.4) % Neut % (Auto) 51.6 (45-73) % Lymph % (Auto) 33.3 (20-40) % Pike % (Auto) 10.4 (2-11) % Eos % (Auto) 4.0 (0-4) % Baso % (Auto) 0.6 (0-2) % Lymph # (Auto) 2.2 (1.2-4.9) X10*3/uL Pike # (Auto) 0.7 (0.1-1.2) X10*3/uL Eos # (Auto) 0.3 (0.0-0.4) X10*3/uL Baso # (Auto) 0.0 (0.0-0.2) X10*3/uL Abs Immat Gran (auto) 0.01 (0.00-0.03) X10*3/uL Absolute Neuts (auto) 3.5 (2.0-8.3) x10*3/uL Absolute Nucleated RBC 0.000 (0.0-0.012) X10*3/uL Nucleated RBC % (auto) 0.0 (0.0-0.2) /100WBC PT 10.9 (10.9-12.4) SEC INR 1.0 (0.9-1.1) Sodium 141 (135-145) mmol/L Potassium 3.8 (3.3-5.1) mmol/L Chloride 105 (96-108) mmol/L Carbon Dioxide 26 (22-29) mmol/L Anion Gap 14 (12-20) BUN 15 (9-16) mg/dL Creatinine 0.86 (0.5-1.4) mg/dL Estim Creat Clear Calc 117.4 Estimated GFR > 60 Random Glucose 143 H (60-115) mg/dL Calcium 9.2 (8.4-10.2) mg/dL Magnesium 2.1 (1.6-2.6) mg/dL Total Bilirubin 0.3 (0.0-1.0) mg/dL AST 33 (5-37) U/L ALT 44 H (0-40) U/L Alkaline Phosphatase 92 (39-117) U/L Troponin I High Sens 6.2 D 5.8 (<3.5-35.0) ng/L Total Protein 7.3 (6.5-8.0) g/dL Albumin 4.6 (3.5-5.0) g/dL Lipase 28 (8-78) U/L Discharge Plan Discharge Clinical Impression: Chest pain Patient Disposition: Home, Self-Care Instructions: Chest Pain (ED) Additional Instructions: Return with any worsening symptoms Follow up with primary care provider Prescriptions: No Action cholecalciferol (vitamin D3) 50 mcg (2,000 unit) capsule 50 mcg PO DAILY 90 Days Qty: 90 3RF amlodipine-olmesartan 10-20 mg tablet 1 tab PO DAILY Qty: 30 0RF Interventions: ED Discharge Assessment Last Done: 06/03/25 07:17 Discharge Date/Time: 06/03/25 07:17 Print Language: Montserratian
--- NOTE | 2025-06-03 06:12 | PC.NURSE ---
RN made aware of pt's low o2 sat, RN to bedside to find the patient resting comfortably in the stretcher with eyes closed. Once this RN entered the room the patient woke up, confirms having sleep apnea but denies using CPAP at night d/t needing new hose. Pt agreeable to having 2lpm via NC applied for additional support while he rests. +Improvement in O2 s/p NC application
[2025-06-03 06:49] LABS: Troponin-I High Sensitivity 5.8 ng/L (<3.5-35.0)
== END 2025-06-03 07:17 | disposition home or self-care (01) ==
PROVIDERS: Emergency Provider Emergency Medicine; PCP Internal Medicine
DX: R07.9 Chest pain, unspecified (principal); I10 Essential (primary) hypertension; Z79.899 Other long term (current) drug therapy
CPT/HCPCS: 36415; 71045; 80053; 83690; 83735; 84484; 85025; 85610; 93005; 96374; 99284; 99285; J1920

== ENCOUNTER → 2025-06-03 04:15 | Outpatient (BNV) | payer BC, SELFPAY | PROVIDERS: Emergency Provider Emergency Medicine; PCP Internal Medicine; Visit Provider Internal Medicine Cardiovascular Disease | DX: R94.31 Abnormal electrocardiogram [ECG] [EKG] (principal); R07.89 Other chest pain | CPT/HCPCS: 93010 ==

== ENCOUNTER 2025-06-20 12:50 | Outpatient (AMB) | payer BC, SELFPAY ==
--- NOTE | 2025-06-20 12:52 | MHC.PC.OV ---
Vital Signs 06/20/25 12:53 06/20/25 13:20 Weight 223 lb 8 oz BP 160/104 H 178/100 H Blood Pressure Location Lt brachial Lt brachial Position Sitting Sitting Pulse 107 H 72 Pulse Source Pulse Oximeter Pulse Oximeter Pulse Oximetry (%) 98 98 Oxygen Delivery Method Room Air Room Air Intake Visit Reasons: 6 weeks Motor Vehicle Compliance Analyst Required: No Accompanied by: Self / Same As Patient Allergies penicillin V Allergy (Mild, Verified 06/20/25 13:34) headaches Penicillins Allergy (Unknown, Verified 06/20/25 13:34) HEADACHES Medication List - Last Reviewed 06/20/25 by Harjeet Botello MA amlodipine-olmesartan 10-20 mg 1 tab PO DAILY cholecalciferol (vitamin D3) 50 mcg PO DAILY 90 days Tobacco use date assessed: 06/20/25 Dental Screening Dental Screen Date: 06/20/25 Did you have a dental visit in the last 12 months?: No Did you have a dental problem in the last 6 months where you did not have access to dental care?: No Was dental information given to patient?: No HPI 6 weeks HPI Details 54 year old male with past medical history of HTN, anxiety, depression, obesity last seen 05/2025 coming in for blood pressure follow up.? In review of the notes, patient was seen in [facility] ED 06/03/2025 for chest pain and elevated blood pressure workup was negative and patient was discharged home. Presenting with uncontrolled hypertension. He was previously on amlodipine 10 mg, which was increased to a combination of amlodipine and olmesartan due to worsening blood pressure. The patient reports a weight gain of 10 pounds over the past month. He has a history of sleep apnea and previously used a CPAP machine, which he discontinued due to issues with the equipment. He has been taking the blood pressures at home which range in the 140-160 systolic over 100-110 diastolic [facility] Medical History Vitamin D deficiency Dyslipidemia Overweight (BMI 25.0-29.9) Diabetes mellitus Orozco's palsy Obstructive sleep apnea Anxiety Benign essential hypertension Surgical History No pertinent past surgical history Family History Mother No problems noted. 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 Cognitive needs: No Hearing needs: No Vision needs: Yes (Reading glasses) Questionnaire Thrive Questionnaire Date Thrive assessed: 06/20/25 I am a: Patient What is your living situation today?: I have a steady place to live Within the past 12 months, did the food you bought not last and you didn't have the money to get more?: Never true Within the past 12 months, did you worry whether your food would run out before you got money to buy more?: Never true Do you have trouble paying for medicines?: No Do you have trouble getting transportation to medical appointments?: No Do you have trouble paying your heating and electricity bill?: No Do you have trouble taking care of your child, family member or friend?: No Do you have trouble with day-to-day activities such as bathing, preparing meals, shopping, managing finances, etc.?: No Are you currently unemployed and looking for a job?: No Are you interested in more education?: Yes Please select the resources that you would like help with: None Currently or been in a relationship where the following occur: No concerns reported THRIVE Score: 0 WALT-7 AMB Questionnaire WALT-7 Date WALT - 7 assessed: 06/20/25 Source: Developed by Drs. Migel Wang, Elinor Martin, Kwabena Oreilly and colleagues, with an educational soraya from [employer]. Review of Systems Const Denies body aches, Denies chills, Denies fever(s), Denies headache(s) and Denies poor appetite Eyes Reports no additional complaints ENT Denies dizziness and Denies headache(s) Card Denies chest pain, Denies edema, Denies lightheadedness and Denies dyspnea Resp Denies cough and Denies dyspnea GI Denies abdominal pain, Denies nausea and Denies vomiting Reports no additional complaints Musc Reports no additional complaints and Denies abnormal gait Skin/Breast Reports system reviewed and no additional complaints, except as documented Neuro Denies abnormal gait, Denies dizziness and Denies headache(s) Psych Reports no additional complaints Physical exam (Primary Care) Vital Signs: Last Vital Signs Pulse 107 H 06/20/25 12:53 BP 160/104 H 06/20/25 12:53 Pulse Ox 98 06/20/25 12:53 Oxygen Delivery Method Room Air 06/20/25 12:53 Tobacco/Smoking Status: Tobacco use Status Tobacco use date assessed 06/20/25 06/20/25 12:57 Patient Tobacco Use Status Former Tobacco user 06/20/25 12:54 e-Cigarette/Vaping Use Never Used 06/20/25 12:54 Thrive Assessment: Date of Thrive Assessment Date Thrive assessed 06/20/25 06/20/25 12:54 Currently or been in a relationship where the following occur: No concerns reported Const General: cooperative, healthy appearing, comfortable and no acute distress Orientation/consciousness: patient oriented x3 HENMT Head: Yes normocephalic Ears: hearing grossly normal bilaterally General nose exam: Normal external nose present Eyes General: appearance normal, both eyes and all related structures Conjunctivae: conjunctivae normal Neck Neck: Yes full ROM and Yes no lymphadenopathy Resp Effort & Inspection: normal respiratory effort Auscultation: clear to auscultation bilaterally, no crackles, no rales, no rhonchi and no wheezes Cardio Rate: regular rate Rhythm: regular rhythm Skin General skin exam: no rashes or lesions noted Neuro General: patient oriented x3 Gait exam (Neuro): Normal gait present Extrem General: Yes normal to inspection, Yes full ROM and No edema Psych Affect: normal affect Attitude: cooperative Insight: Good insight present (Psych) Judgement: Good judgement present (Psych) Coding Level of Care Code Est Pt Level 4 (05883) Diagnoses Benign essential hypertension I10 Overweight (BMI 25.0-29.9) E66.3 Hypersomnolence G47.10 Assessment & Plan Assessment & Plan (1) Benign essential hypertension: Code(s): I10 - Essential (primary) hypertension Category: Medical Plan: Blood pressure still not well controlled today in the office at 170/100. He does mentioned he is also in pain as he just had a tooth extracted prior to coming here however blood pressures at home remain elevated as well. Plan to increase the blood pressure medication to amlodipine-olmesartan 10-40 and plan to take in the morning. Advised patient if blood pressure remains elevated at home after 3 weeks to reach out to the office and hydrochlorothiazide we will be added to medication regimen. Patient also has a history of sleep apnea and previously using CPAP and has not had this in many years. This is likely also contributing to his elevated blood pressure. Plan to obtain sleep study for further evaluation. (2) Overweight (BMI 25.0-29.9): Code(s): E66.3 - Overweight Category: Medical Plan: Healthy diet and regular exercise is encouraged. (3) Hypersomnolence: Code(s): G47.10 - Hypersomnia, unspecified Category: Medical Plan: Previously using CPAP and plan to obtain updated sleep study. Plan The plan for managing the patient's uncontrolled hypertension includes increasing the dosage of the current combination medication of amlodipine and olmesartan to the highest available dose. The patient is advised to switch the timing of medication intake to the morning to potentially improve blood pressure control. If blood pressure remains uncontrolled after three weeks, the addition of a third antihypertensive medication, such as hydrochlorothiazide, will be considered. A referral to nephrology will be made if blood pressure remains elevated despite these interventions, to evaluate for potential renal causes of hypertension. The patient will undergo a repeat sleep study to assess for untreated sleep apnea, which may be contributing to the hypertension. Lifestyle modifications, including dietary changes to reduce sugar intake before bedtime, are recommended to address nocturia and potential sleep disturbances. This note was constructed using voice recognition software. While every effort has been made to ensure accuracy and custodian supervisor, still areas may have been included sometimes these areas may affect the content or meeting of the given symptoms. Total time spent caring for the patient today was 20 minutes. This includes time spent before the visit reviewing the chart, time spent during the visit, and time spent after the visit and documentation. Patient was informed and verbally consented to the use of an ambient scribe for clinic note documentation during this visit. Orders: Orders RT home sleep study Today G47.10 - Hypersomnia, unspecified Medications: New amlodipine-olmesartan 10-40 mg 1 tab PO DAILY 90 tabs 0RF Discontinued amlodipine-olmesartan 10-20 mg Discontinued Reason: Patient no longer taking 1 tab PO DAILY 30 tabs 0RF
[2025-06-20 12:53] VITALS: BP 160/104; PULSE 107; O2SAT 98
[2025-06-20 13:20] VITALS: BP 178/100; PULSE 72; O2SAT 98
== END 2025-06-20 13:40 | disposition home or self-care (01) ==
LOC: HO.HMCH 12:51
PROVIDERS: PCP Internal Medicine
DX: I10 Essential (primary) hypertension (principal); E66.3 Overweight; G47.10 Hypersomnia, unspecified

== ENCOUNTER 2025-08-01 08:52 | Outpatient (AMB) | payer BC, SELFPAY ==
--- NOTE | 2025-08-01 08:57 | A.OFFPC_ITS ---
Vital Signs 08/01/25 08:58 Height 5 ft 10 in Weight 232 lb 2 oz BMI 33.3 BP 144/98 H Blood Pressure Location Lt brachial Position Sitting Pulse 96 Pulse Source Pulse Oximeter Temp 97.1 F Temp Source Temporal Artery Scan Pulse Oximetry (%) 98 Oxygen Delivery Method Room Air Intake Visit Reasons: f/u HTN Allergies penicillin V Allergy (Mild, Verified 08/01/25 09:12) headaches Penicillins Allergy (Unknown, Verified 08/01/25 09:12) HEADACHES Medication List - Last Reconciled 08/01/25 by Yvonne Miranda PA-C amlodipine-olmesartan 10-40 mg 1 tab PO DAILY cholecalciferol (vitamin D3) 50 mcg PO DAILY 90 days Tobacco use date assessed: 08/01/25 Dental Screening Dental Screen Date: 08/01/25 Did you have a dental visit in the last 12 months?: Yes Did you have a dental problem in the last 6 months where you did not have access to dental care?: No Was dental information given to patient?: Patient has dentist HPI f/u HTN HPI Details 54 year old male with past medical histo ry of HTN, anxiety, depression, obesity last seen 06/2025 coming in for follow up. Presenting with hypertension management. The patient's blood pressure has improved with medication but remains elevated at 148/96 mmHg. He denies leg swelling and reports occasional chest pain attributed to anxiety. He is on maximum doses of amlodipine and olmesartan, with a diuretic being considered for further control. The patient reports improved sleep quality when sleeping elevated, suggesting possible sleep apnea. A new sleep study is being arranged. The patient has gained 11 pounds since May, attributed to dietary habits. He acknowledges that this can worsen hypertension and sleep apnea. [facility] Medical History Vitamin D deficiency Dyslipidemia Overweight (BMI 25.0-29.9) Diabetes mellitus Orozco's palsy Obstructive sleep apnea Anxiety Benign essential hypertension Surgical History No pertinent past surgical history Family History Mother No problems noted. 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 Cognitive needs: No Hearing needs: No Vision needs: Yes (Reading glasses) Questionnaire PHQ-9 Over the last 2 weeks, how often have you been bothered by any of the following problems? 1. Little interest or pleasure in doing things: more than half the days 2. Feeling down, depressed, or hopeless: not at all 3. Trouble falling or staying asleep, or sleeping too much: several days 4. Feeling tired or having little energy: nearly every day 5. Poor appetite or overeating: not at all 6. Feeling bad about yourself - or that you are a failure or have let yourself or your family down: not at all 7. Trouble concentrating on things, such as reading the newspaper or watching television: not at all 8. Moving or speaking so slowly that other people could have noticed. Or the opposite - being so fidgety or restless that you have been moving around a lot more than usual: not at all 9. Thoughts that you would be better off or of hurting yourself in some way: not at all Total score: 6 Depression Screening Interpretation: Positive Depression Screening Follow-up: Existing condition and Declines treatment Depression Screening Done: Yes Source: Developed by Drs. Migel Wang, Elinor Martin, Kwabena Oreilly and colleagues, with an educational soraya from [employer]. Thrive Questionnaire Date Thrive assessed: 05/01/25 I am a: Patient What is your living situation today?: I have a steady place to live Within the past 12 months, did the food you bought not last and you didn't have the money to get more?: Never true Within the past 12 months, did you worry whether your food would run out before you got money to buy more?: Never true Do you have trouble paying for medicines?: No Do you have trouble getting transportation to medical appointments?: No Do you have trouble paying your heating and electricity bill?: No Do you have trouble taking care of your child, family member or friend?: No Do you have trouble with day-to-day activities such as bathing, preparing meals, shopping, managing finances, etc.?: No Are you currently unemployed and looking for a job?: No Are you interested in more education?: Yes Please select the resources that you would like help with: None Currently or been in a relationship where the following occur: No concerns reported THRIVE Score: 0 AUDIT C Alcohol Use Questionnaire (AUDIT-C) 1. How often do you have a drink containing alcohol?: 2-4 times a month 2. How many drinks containing alcohol do you have on a typical day when you are drinking?: 7 to 9 3. How often do you have six or more drinks on one occasion?: Monthly Total Score: 7 WALT-7 AMB Questionnaire WALT-7 Date WALT - 7 assessed: 06/20/25 Feeling nervous, anxious, or on edge: 1 = Several days Not being able to stop or control worryin = More than half the days Worrying too much about different things: 2 = More than half the days Trouble relaxin = Several days Being so restless that it is hard to sit still: 0 = Not at all Becoming easily annoyed or irritable: 2 = More than half the days Feeling afraid as if something awful might happen: 2 = More than half the days Total WLAT-7 score (0-4 normal; 5-9 mild; 10-14 moderate; 15-21 severe): 10 Source: Developed by Drs. Migel Wang, Elinor Martin, Kwabena Oreilly and colleagues, with an educational soraya from [employer]. Review of Systems Const Denies body aches, Denies chills, Denies fever(s), Denies headache(s) and Denies poor appetite Eyes Reports no additional complaints ENT Denies dizziness and Denies headache(s) Card Denies chest pain, Denies lightheadedness and Denies dyspnea Resp Denies dyspnea GI Denies nausea and Denies vomiting Reports no additional complaints Musc Reports no additional complaints and Denies abnormal gait Skin/Breast Reports system reviewed and no additional complaints, except as documented Neuro Denies abnormal gait, Denies dizziness and Denies headache(s) Psych Reports no additional complaints Physical exam (Primary Care) Vital Signs: Last Vital Signs Temp 97.1 F 08/01/25 08:58 Pulse 96 08/01/25 08:58 BP 144/98 H 08/01/25 08:58 Pulse Ox 98 08/01/25 08:58 Oxygen Delivery Method Room Air 08/01/25 08:58 BMI result Body Mass Index 33.3 Tobacco/Smoking Status: Tobacco use Status Tobacco use date assessed 08/01/25 08/01/25 09:01 Patient Tobacco Use Status Former Tobacco user 08/01/25 08:57 e-Cigarette/Vaping Use Never Used 08/01/25 08:57 PHQ-9: PHQ-9 Score PHQ-9: Total score 6 08/01/25 09:01 Depression Screening Interpretation: Positive Depression Screening Follow-up: Existing condition and Declines treatment Thrive Assessment: Date of Thrive Assessment Date Thrive assessed 05/01/25 08/01/25 08:57 Currently or been in a relationship where the following occur: No concerns reported Const General: cooperative, healthy appearing, comfortable and no acute distress Orientation/consciousness: patient oriented x3 HENMT Head: Yes normocephalic Ears: hearing grossly normal bilaterally General nose exam: Normal external nose present Eyes General: appearance normal, both eyes and all related structures Conjunctivae: conjunctivae normal Neck Neck: Yes full ROM and Yes no lymphadenopathy Resp Effort & Inspection: normal respiratory effort Auscultation: clear to auscultation bilaterally, no crackles, no rales, no rhonchi and no wheezes Cardio Rate: regular rate Rhythm: regular rhythm Skin General skin exam: no rashes or lesions noted Neuro General: patient oriented x3 Gait exam (Neuro): Normal gait present Extrem General: Yes normal to inspection, Yes full ROM and No edema Psych Affect: normal affect Attitude: cooperative Insight: Good insight present (Psych) Judgement: Good judgement present (Psych) Coding Level of Care Code Est Pt Level 3 (24897) Diagnoses Benign essential hypertension I10 Overweight (BMI 25.0-29.9) E66.3 Hypersomnolence G47.10 Assessment & Plan Assessment & Plan (1) Benign essential hypertension: Code(s): I10 - Essential (primary) hypertension Category: Medical Plan: Blood pressure still not well controlled today 144/98 despite being on the maximum dose of amlodipine and olmesartan. Plan to add hydrochlorothiazide 12.5 mg to medication regimen. If blood pressure continues to be uncontrolled plan for referral to Nephrology. Avoid salt intake and encourage healthy diet and regular exercise. Strongly advised patient to undergo home sleep study as this is not been scheduled as of yet. He does also have recent 11 lb weight gain which is likely contributing to the elevated blood pressure reading. (2) Overweight (BMI 25.0-29.9): Code(s): E66.3 - Overweight Category: Medical Plan: Healthy diet and regular exercise is encouraged. 11 lb weight gain since last visit. Patient states he has been eating sweets and carbs which is likely the cause of the weight gain. We discussed dietary habits and regular exercise (3) Hypersomnolence: Code(s): G47.10 - Hypersomnia, unspecified Category: Medical Plan: Patient was previously using CPAP and does frequently wake up at night. Recently he began sleeping elevated has noticed an improvement in his symptoms. He has not yet scheduled the home sleep studies test and was encouraged to reach out to scheduling to have this completed. I did call centralized scheduling who informed me they are not currently reaching out to patient's to schedule the home sleep study as they are awaiting new equipment. They will be reaching out in the coming weeks to schedule appointment Plan This note was constructed using voice recognition software. While every effort has been made to ensure accuracy and instructional resource teacher, still areas may have been included sometimes these areas may affect the content or meeting of the given symptoms. Total time spent caring for the patient today was 20 minutes. This includes time spent before the visit reviewing the chart, time spent during the visit, and time spent after the visit and documentation. Patient was informed and verbally consented to the use of an ambient scribe for clinic note documentation during this visit. Orders: Orders Lipid Panel Today Z13.220 - Encounter for screening for lipoid disorders Hemoglobin A1c Today Z13.1 - Encounter for screening for diabetes mellitus Comprehensive Met. Panel Today I10 - Essential (primary) hypertension, Z00.00 - Encounter for general adult medical examination without abnormal findings Medications: New hydrochlorothiazide 12.5 mg PO DAILY 90 tabs 0RF
[2025-08-01 08:58] VITALS: BP 144/98; PULSE 96; TEMP 36.2; O2SAT 98; BMI 33.3
== END 2025-08-01 09:37 | disposition home or self-care (01) ==
LOC: HO.HMCH 08:53
PROVIDERS: PCP Internal Medicine
DX: I10 Essential (primary) hypertension (principal); E66.3 Overweight; G47.10 Hypersomnia, unspecified

== ENCOUNTER 2025-10-01 10:34 | Outpatient (REF) | payer BC, SELFPAY ==
[2025-10-01 14:07] LABS: Alanine Aminotransferase 73 U/L (0-40); Albumin Level 4.3 g/dL (3.5-5.0); Alkaline Phosphatase 78 U/L (39-117); Anion Gap 9 (12-20); Aspartate Amino Transferase 42 U/L (5-37); Blood Urea Nitrogen 17 mg/dL (9-16); Calcium 8.8 mg/dL (8.4-10.2); Carbon Dioxide 31 mmol/L (22-29); Chloride 106 mmol/L (96-108); Cholesterol 162 mg/dL (<200); Estimated Glomerular Filt Rate > 60; HDL Cholesterol 51 mg/dL (>40); Potassium 3.9 mmol/L (3.3-5.1); Sodium 142 mmol/L (135-145); Total Protein 6.8 g/dL (6.5-8.0); Triglycerides 78 mg/dL (<150)
== END 2025-10-01 10:35 | disposition home or self-care (01) ==
LOC: HO.HMGCLDS 10:34
DX: Z00.00 Encounter for general adult medical examination without abnormal findings (principal); I10 Essential (primary) hypertension; Z13.1 Encounter for screening for diabetes mellitus; Z13.220 Encounter for screening for lipoid disorders
CPT/HCPCS: 36415; 80053; 80061; 83036

== ENCOUNTER 2025-10-10 10:26 | Outpatient (AMB) | payer BC, SELFPAY ==
[2025-10-10 10:38] VITALS: BP 140/88; PULSE 76; RESP 18; O2SAT 98; BMI 33.4
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
[2025-10-10 11:07] VITALS: BP 146/90
== END 2025-10-10 11:15 | disposition home or self-care (01) ==
LOC: HO.HMCH 10:27
PROVIDERS: PCP Internal Medicine
DX: I10 Essential (primary) hypertension (principal); E66.3 Overweight; G47.10 Hypersomnia, unspecified; R73.01 Impaired fasting glucose; R79.89 Other specified abnormal findings of blood chemistry; R20.2 Paresthesia of skin